=== PATIENT | male | born 1945 | race Caucasian/White ===

== ENCOUNTER → 2019-10-21 | Day surgery (SDC) | payer BC ==
[~2019-10-21] MED LIST: Lactated Ringers 1,000 ML IV SCH
[2019-10-21 09:09] VITALS: BP 116/60; PULSE 61
--- NOTE | 2019-10-21 14:09 | OR ---
DATE OF OPERATION: 10/21/2019 PREOPERATIVE DIAGNOSIS: BRIGHT RED BLOOD PER RECTUM. POSTOPERATIVE DIAGNOSIS: BRIGHT RED BLOOD PER RECTUM. SURGEON: Delio Valverde MD PROCEDURE: FULL-LENGTH COLONOSCOPY. ANESTHESIA: MAC. COMPLICATIONS: None. SPECIMEN: None. FINDINGS: 1. Full-length diagnostic colonoscopy. 2. Moderate sigmoid diverticulosis. 3. Prominent internal hemorrhoids. RECOMMENDATIONS: Medical followup with Ryanne Diaz NP INDICATIONS: The patient has been having some on and off again occasional bright red blood with stools. It has been just over 3 years since his last colonoscopy. He was sent for diagnostic scope. DESCRIPTION OF PROCEDURE: The patient was prepped and draped, placed in the left lateral decubitus position. A lubricated Olympus colonoscope was inserted and easily advanced to the cecum. Direct visualization of the ileocecal valve and appendiceal orifice was accomplished. The bowel prep was excellent. Upon withdrawal of the scope, the right transverse and descending colons were completely unremarkable. Throughout the sigmoid and rectosigmoid junction, the patient has [id number] diverticular disease without any inflammatory changes or bleeding. There were no signs of colitis, vascular abnormalities. No polyps, masses, ulcerations, or bleeding sites. The rectal vault was benign. Retroflexion showed prominent internal hemorrhoids, otherwise unremarkable. Air was then suctioned, scope removed without complication. ERIKA/RACHID /[id number]
== END ==
LOC: CC.SDS 07:09
PROVIDERS: ATTEND Family Medicine
DX: K57.31 Diverticulosis of large intestine without perforation or abscess with bleeding (principal); K64.8 Other hemorrhoids; I10 Essential (primary) hypertension; I48.91 Unspecified atrial fibrillation; M19.90 Unspecified osteoarthritis, unspecified site; F17.290 Nicotine dependence, other tobacco product, uncomplicated; Z79.82 Long term (current) use of aspirin; Z79.01 Long term (current) use of anticoagulants; Z79.899 Other long term (current) drug therapy
CPT/HCPCS: J7120

== ENCOUNTER 2023-10-31 14:38 | Emergency (ER) | payer BC ==
[2023-10-31] MEDS ORDERED: predniSONE 20 MG Tab PO STA (15:00)
[2023-10-31] MEDS ORDERED: Take Home: predniSONE 20 MG, 2 Tab Pack PO ONE ×2 (15:04)
[2023-10-31 15:10] LABS: BASOPHILS ABSOLUTE AUTO 0.04 10^3/uL (0.00-0.50); BASOPHILS PERCENT AUTO 0.3 % (0-1); EOSINOPHILS ABSOLUTE AUTO 0.46 10^3/uL (0.00-1.50); HEMOGLOBIN 15.3 g/dL (14.0-18.0); IMMATURE GRAN ABSOLUTE AUTO 0.02 10^3/uL (0.00-0.49); IMMATURE GRAN PERCENT AUTO 0.2 % (0.0-4.9); LYMPHOCYTES ABSOLUTE AUTO 3.14 10^3/uL (0.60-5.00); LYMPHOCYTES PERCENT AUTO 27.1 % (24-44); MEAN CORPUSCULAR HEMOGLOBIN 30.6 pg (27.0-32.0); MEAN CORPUSCULAR HGB CONC 33.3 g/dL (32.0-36.0); MONOCYTES ABSOLUTE AUTO 1.59 10^3/uL (0.00-1.50); MONOCYTES PERCENT AUTO 13.7 % (0-10); NEUTROPHILS ABSOLUTE AUTO 6.34 x10^3/uL (1.80-8.00); NEUTROPHILS PERCENT AUTO 54.7 % (41-71); PLATELET COUNT,PLT 325 10^3/uL (150-400); WHITE BLOOD CELL COUNT,WBC 11.6 10^3/uL (4.0-11.0)
[2023-10-31] MEDS ORDERED: Take Home: Acetaminophen/HYDROcodone 325-5 MG, 2 Tab Pack PO ONE (15:13)
[2023-10-31 15:24] LABS: ALBUMIN 3.4 g/dL (3.4-5.0); BILIRUBIN TOTAL 0.8 mg/dL (0.0-1.0); C-REACTIVE PROTEIN 2.13 mg/dL (<=0.50); CALCIUM 9.3 mg/dL (8.4-10.1); CREATININE 1.2 mg/dL (0.7-1.3); EST CRCL DRUG DOSING (CG) 49.08 mL/min; POTASSIUM,K 4.4 mEq/L (3.5-5.0); PROTEIN TOTAL,TP 7.1 g/dL (6.4-8.2)
[2023-10-31 16:54] VITALS: BP 116/66; PULSE 73
== END 2023-10-31 15:50 | disposition home or self-care (01) ==
LOC: CC.ED 14:38
DX: M10.9 Gout, unspecified (principal); I10 Essential (primary) hypertension; E78.00 Pure hypercholesterolemia, unspecified; I48.91 Unspecified atrial fibrillation; F17.210 Nicotine dependence, cigarettes, uncomplicated; Z79.82 Long term (current) use of aspirin; Z79.899 Other long term (current) drug therapy
CPT/HCPCS: 36415; 80053; 84550; 85025; 86140; 99283; A9270-GY; J7512

== ENCOUNTER 2025-02-22 09:08 | Day surgery (SDC) | payer BC ==
[2025-02-22] MEDS: Lactated Ringers 1,000 ML IV SCH (09:40)
[2025-02-22] MEDS ORDERED: Ketamine 200 MG/20 ML MDV ONE (10:00)
[2025-02-22] MEDS ORDERED: Ketorolac 30 MG/ML SDV ONE (10:00)
[2025-02-22] MEDS ORDERED: Propofol 200 MG/20 ML SDV ONE (10:00)
[2025-02-22] MEDS ORDERED: fentaNYL 50 MCG/ML SDV ONE (10:00)
[2025-02-22] MEDS ORDERED: Midazolam 1 MG/ML 2 ML SDV ONE (10:00)
[2025-02-22 11:27] VITALS: BP 93/56; PULSE 89
== END 2025-02-22 11:30 | disposition home or self-care (01) ==
LOC: CC.SDS 09:08
PROVIDERS: ATTEND Family Medicine
DX: K57.30 Diverticulosis of large intestine without perforation or abscess without bleeding (principal); K64.8 Other hemorrhoids; K59.00 Constipation, unspecified; E03.9 Hypothyroidism, unspecified; I48.91 Unspecified atrial fibrillation; E78.5 Hyperlipidemia, unspecified; Z87.891 Personal history of nicotine dependence; Z79.899 Other long term (current) drug therapy; Z79.890 Hormone replacement therapy
CPT/HCPCS: J1885; J2250; J2704; J3010; J3490; J7120

== ENCOUNTER 2025-06-12 15:00 | Emergency (ER) | payer BC ==
[2025-06-12 15:11] VITALS: BP 139/84
[2025-06-12] MEDS: Diphtheria,Pertussis(Acell),Tetanus Vaccine 0.5 ML Syringe IM ONE (15:41)
[2025-06-12] MEDS: Bacitracin Oint 1 GM U/D Packet TOP ONE (15:45)
[2025-06-12 15:58] VITALS: PULSE 76
== END 2025-06-12 15:52 | disposition home or self-care (01) ==
LOC: CC.ED 15:00
DX: S61.431A Puncture wound without foreign body of right hand, initial encounter (principal); I48.91 Unspecified atrial fibrillation; E78.00 Pure hypercholesterolemia, unspecified; I10 Essential (primary) hypertension; Z87.891 Personal history of nicotine dependence; Z79.890 Hormone replacement therapy; Z23 Encounter for immunization; Z79.899 Other long term (current) drug therapy; W22.8XXA Striking against or struck by other objects, initial encounter; Y93.89 Activity, other specified
CPT/HCPCS: 73130-RT; 90471; 90715; 99283; 99283-25